=== PATIENT | female | born 1985 | race Two or more races ===

== ENCOUNTER 2017-08-24 13:15 | Inpatient (IN) | payer OTHER ==
[~2017-08-24] VITALS: Ht 182.9 cm; Wt 84.8 kg
[~2017-08-24 13:15] MED LIST: ADULT ASPIRIN81 MG; CIPRO500 MG PO; FLAGYL500MG PO; FOLIC ACID0.4 MG; INTESTINEX1 CA1 PO; PRENATAL TABLE1 EACH; ZANTAC150 MG PO
== END 2017-09-28 13:16 | disposition home or self-care (01) | DRG 775 ==
LOC: OB/GYN 09-15 13:15 → LDR 09-26 05:15 → OB/GYN 09-26 05:35 → LDR 09-26 08:18 → OB/GYN 09-27 07:25
PROC: 0KQM0ZZ Repair Perineum Muscle, Open Approach (ICD-10-PCS; principal; 2017-09-26)
PROC: 10E0XZZ Delivery of Products of Conception, External Approach (ICD-10-PCS; 2017-09-26)
PROC: 4A1HXCZ Monitoring of Products of Conception, Cardiac Rate, External Approach (ICD-10-PCS; 2017-09-26)
PROC: 3E033VJ Introduction of Other Hormone into Peripheral Vein, Percutaneous Approach (ICD-10-PCS; 2017-09-26)
DX: O70.1 Second degree perineal laceration during delivery (principal); O48.0 Post-term pregnancy; Z37.0 Single live birth; Z3A.41 41 weeks gestation of pregnancy

== ENCOUNTER 2018-03-19 23:02 | Emergency (ER) | payer OTHER ==
[~2018-03-19] VITALS: Ht 182.9 cm; Wt 68.0 kg
[2018-03-20] MEDS ORDERED: CEPHALEXIN500 MG PO (03:08)
[2018-03-20] MEDS ORDERED: ZOFRAN ODT4 MG PO (03:10)
== END 2018-03-20 03:20 | disposition home or self-care (01) ==
LOC: ER 23:02
DX: N39.0 Urinary tract infection, site not specified (principal); R50.9 Fever, unspecified

== ENCOUNTER 2021-12-01 23:22 | Emergency (ER) | payer OTHER ==
[~2021-12-01] VITALS: Ht 182.9 cm; Wt 68.0 kg
[~2021-12-01 23:22] MED LIST changes: +CEPHALEXIN500 MG PO; +ZOFRAN ODT4 MG PO
[2021-12-02] MEDS ORDERED: ZOFRAN8 MG PO (04:26)
[2021-12-02] MEDS ORDERED: PEPCID40 MG PO (04:26)
== END 2021-12-02 04:29 ==
LOC: ER 23:22
DX: R11.10 Vomiting, unspecified (principal)

== ENCOUNTER 2022-12-13 21:08 | Emergency (ER) | payer OTHER ==
[~2022-12-13] VITALS: Ht 182.9 cm; Wt 65.8 kg
[~2022-12-13 21:08] MED LIST changes: +PEPCID40 MG PO; +ZOFRAN8 MG PO
== END 2022-12-14 02:44 | disposition home or self-care (01) ==
LOC: ER 21:08
DX: B34.9 Viral infection, unspecified (principal); R11.2 Nausea with vomiting, unspecified